=== PATIENT | female | born 1970 | race Caucasian/White ===

== ENCOUNTER 2017-01-22 02:20 | Emergency (ER) | payer MEDICAID ==
[2017-01-22] MEDS ORDERED: Triple Antibiotic 0.94 gm Pkt TP STA (02:49)
[2017-01-22] MEDS ORDERED: Triple Antibiotic 0.94 gm Pkt TP ONE (03:13)
--- NOTE | 2017-01-22 04:11 | ED Physician Chart ---
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 pain, A/N/V/D/, fever, chills, urinary s/s, gait changes, paresthesias, weakness, or dizziness; pt's last tetanus shot: < 5 years; UTD Allergies:: Allergies Allergy/AdvReac Type Severity Reaction Status Date / Time No Known Allergies Allergy Verified 01/22/17 02:24 Vitals:: Vital Signs - 8 hr 01/22/17 01/22/17 02:25 03:35 Temp 97.8 F 98.0 F HR 67 71 RR 18 18 BP 141/87 131/75 O2 Sat % 99 19 Historian:: Patient Review:: Nurse's Note Reviewed ED Review of Systems - Review of Systems General/Constitutional: No fever, No chills, No weight loss, No weakness, No diaphoresis, No edema, No loss of appetite Skin: No skin lesions, No rash, No bruising Head: No headache, No light-headedness Eyes: No loss of vision, No pain, No diplopia ENT: No earache, No nasal drainage, No sore throat, No tinnitus Neck: No neck pain, No swelling, No thyromegaly, No stiffness, No mass noted Cardio Vascular: No chest pain, No palpitations, No PND, No orthopnea, No edema Pulmonary: No SOB, No cough, No sputum, No wheezing GI: No nausea, No vomiting, No diarrhea, No pain, No melena, No hematochezia, No constipation, No hematemesis G/U: No dysuria, No frequency, No hematuria Musculoskeletal: No bone or joint pain, No back pain, No muscle pain Endocrine: Polyuria, Polydipsia Psychiatric: No prior psych history, No depression, No anxiety, No suicidal ideation Hematopoietic: No bruising, No lymphadenopathy Allergic/Immuno: No urticaria, No angioedema Neurological: No syncope, No focal symptoms, No weakness, No paresthesia, No headache, No seizure, No dizziness, No confusion, No vertigo ED Past Medical History - Past Medical History Obtainable: Yes Past Medical History: DM Family History: Diabetes Melitus, HTN Social History: Non Smoker, No Alcohol, No Drug Use, Employed Surgical History: None Psychiatricy History: None Medication: Reviewed Family Medical History - Family Member Mother Ethnicity: Living Status: Still Living Hx Family Diabetes: Yes ED Physical Exam - Physical Examination General/Constitutional: Awake, Well-developed, well-nourished, Alert, No distress, GCS 15, Non-toxic appearing, Ambulatory Head: Atraumatic Eyes: Lids, conjuctiva normal, PERRL, EOMI Skin: No rash, No skin lesions, No ecchymosis, Well hydrated, No lymphadenopathy Other Skin comments:: + Right Foot PW with embedded multiple fragmented glass-type FBs at the plantar middle MT region; no cellulitis; full active ROMs of all joints; no ligament instability; Gait: WNL; good motor, tendon, and sensory functions; good NV functions ENMT: External ears, nose nl, Nasal exam nl, Lips, teeth, gums nl Neck: Nontender, Full ROM w/o pain, No JVD, No nuchal rigidity, No bruit, No mass, No stridor Respiratory: Nl effort/Exclusion, Clear to Auscultation, No Wheeze/Rhonchi/Rales Cardio Vascular: RRR, No murmur, gallop, rubs, NL S1 S2 GI: No tenderness/rebounding/guarding, No organomegaly, No hernia, Normal BS's, Nondistended, No mass/bruits, No McBurney tenderness : No CVA tenderness Extremities: No tenderness or effusion, Full ROM, normal strength in all extremities, No edema, Normal digits & nails Neuro/Psych: Alert/oriented, DTR's symmetric, Normal sensory exam, Normal motor strength, Judgement/insight normal, Mood normal, Normal gait, No focal deficits Misc: Normal back, No paraspinal tenderness ED Labs/Radiology/EKG Results - Radiology Results Comments:: X-Rays: deferred by pt ED Assessment Location:: Right Foot PW with Glass FBs Prep/Irrigation:: Thorough Cleansing and Irrigation with betadine and saline; embedded FBs present ; unable to remove all glass FBs; Neosporin Ointment and dressing applied ED Septic Shock - . Is Septic Shock (SBP<90, OR Lactate>4 mmol\L) present?: No - <6hrs of presentation: Vital Signs: Vital Signs - 8 hr 01/22/17 01/22/17 02:25 03:35 Temp 97.8 F 98.0 F HR 67 71 RR 18 18 BP 141/87 131/75 O2 Sat % 99 19 ED Reassessment (Disposition) - Reassessment Reassessment:: pt is asymptomatic upon discharge Reassessment Condition:: Improved - Diagnosis Diagnosis:: Right Foot Puncture Wound; Right Foot Glass Foreign Bodies; Diabetes Mellitus - Aftercare/Follow up Instructions Aftercare/Follow-Up Instructions:: Counseled pt regarding lab results/diagnosis & need follow up, Refer to Discharge Instructions, Counseled pt & family regarding lab results/diagnosis & need follow up Notes:: Plan: RTER prn if existing s/s reoccur and/or get worse and/or any other new s/ s occur; ACIs given for all above Dx; Refer to Vascular Surgeon/Energy Systems Engineer/ Orthopedist/Staff Anesthetist NITISH; F/U with PMD in one day or prn; RTER prn if concerned Medication Prescribed:: Rx: Keflex 500mg po qid x 10 days; Neosporin Ointment bid and dressing x 14 days ; Keep Wound clean and dry - Patient Disposition Discharge/Transfer:: Home Condition at Disposition:: Stable, Improved ED Discharge Plan - Patient Disposition Prescriptions: Cephalexin [Keflex] 500 mg PO QID #40 cap Instructions: Puncture Wound, [id number] Additional Instructions: FOLLOW UP WITH YOUR DOCTOR IN 1-2 DAYS AND TO COME BACK TO ER IF SYMPTOMS WORSEN.TAKE YOUR MEDICATIONS PRESCRIBED
== END 2017-01-22 03:52 | disposition home or self-care (01) ==
LOC: ER 02:20
DX: S91.341A Puncture wound with foreign body, right foot, initial encounter (principal); E11.9 Type 2 diabetes mellitus without complications; X58.XXXA Exposure to other specified factors, initial encounter; Y93.89 Activity, other specified; Y92.89 Other specified places as the place of occurrence of the external cause; Y99.8 Other external cause status
CPT/HCPCS: 99284; 96372; J0696; Z7502